=== PATIENT | female | born 1940 | race Caucasian/White ===

== ENCOUNTER 2018-01-18 00:25 | Inpatient (IN) | payer MEDICARE ==
[2018-01-18] MEDS ORDERED: Pantoprazole 40 MG VIAL ONE (01:05)
[2018-01-18 01:44] LABS: ALT (SGPT) 16 U/L (8-55); AST (SGOT) 21 U/L (5-34); Albumin 3.6 g/dL (3.4-4.8); Alkaline Phosphatase 117 U/L (40-150); Anion Gap 16 mmol/L (10-20); BUN (Urea Nitrogen) 17 mg/dL (9.8-20.1); Bilirubin, Total 0.4 mg/dL (0.2-1.2); Calc. Creatinine Clearance 0 mL/min (70-130); Calcium 9.1 mg/dL (7.8-10.44); Carbon Dioxide 26 mmol/L (23-31); Chloride 104 mmol/L (98-107); Estimated GFR-MDRD 57; Globulin 3.4 g/dL (2.4-3.5); Glucose 161 mg/dL (83-110); Lipase 13 U/L (8-78); Potassium 4.5 mmol/L (3.5-5.1); Sodium 141 mmol/L (136-145)
[2018-01-18 01:45] LABS: Band 8 % (5-11); Hemoglobin 12.9 g/dL (12.0-16.0); Lymphocytes 10 % (21-51); MDiff Complete? YES; Mean Corpuscular HGB CONC 32.3 g/dL (32.0-36.0); Mean Corpuscular Hemoglobin 28.4 pg (27.0-31.0); Mean Platelet Volume 10.2 fL (7.4-10.4); Monocytes 2 % (0-10); Neutrophil 79 % (42-75); Platelet Count 175 thou/uL (130-400); RBC Distribution Width 13.5 % (11.5-14.5); Reactive Lymphocytes 1 % (0-10); Red Blood Cell (RBC) Count 4.53 mill/uL (4.20-5.40); White Blood Cell (WBC) Count 11.8 thou/uL (4.8-10.8)
[2018-01-18 01:46] LABS: CKMB 0.7 ng/mL (0-6.6); Troponin I Less than 0.010 ng/mL (< 0.028)
[2018-01-18 03:15] LABS: Bilirubin Negative (Negative); Blood, Urine Negative (Negative); Clarity Cloudy (Clear); Glucose, Urine (Dipstick) Negative (Negative); Leukocyte Small (Negative); Nitrite Positive (Negative); Protein, Urine (Dipstick) Trace mg/dL (Neg-Trace); Urobilinogen 0.2 mg/dL (0.2-1.0)
[2018-01-18 03:16] LABS: RBC/HPF 0-3 HPF (0-3)
[2018-01-18 03:17] LABS: Bacteria/HPF 2+ HPF (None Seen); Hyaline Casts/LPF NONE SEEN LPF (0-3 Hyaline)
[2018-01-18 03:55] LABS: INR-International Normal Ratio 0.9; Prothrombin Time 12.4 SEC (12.0-14.7)
[2018-01-18 03:56] LABS: PTT 29.7 SEC (22.9-36.1)
[2018-01-18] MEDS ORDERED: Piperacillin/Tazobactam 4.5 GM VIAL ONE (04:04)
[2018-01-18] MEDS ORDERED: Sodium Chloride 0.9% 100 ML ONE (04:04)
[2018-01-18] MEDS: Sodium Chloride 0.9% 1,000 ML IV SCH ×2 (04:10→14:06)
[2018-01-18] MEDS ORDERED: Ondansetron HCl/PF 4 MG/2 ML Vial IVP PRN ×3 (05:24→14:51)
[2018-01-18] MEDS ORDERED: Sodium Chloride 0.9% 1,000 ML IV SCH (05:24)
[2018-01-18] MEDS ORDERED: Ondansetron ODT 4 MG TAB SL PRN (05:24)
[2018-01-18] MEDS ORDERED: Acetaminophen 325 MG TAB PO PRN (05:24)
[2018-01-18] MEDS ORDERED: Acetaminophen 1,000 MG in Premix Bag 1 BAG IVPB PRN (05:31)
[2018-01-18] MEDS ORDERED: Ketorolac Tromethamine 30 MG/ML VIAL IVP PRN (05:31)
[2018-01-18] MEDS ORDERED: Morphine 2 MG/ML SYRINGE SLOW IVP PRN (05:33)
[2018-01-18] MEDS ORDERED: Scopolamine 1.5 mg/72 hour Patch TOP SCH (05:45)
[2018-01-18 06:27] VITALS: BMI 33.0
[2018-01-18] MEDS: Piperacillin/Tazobactam 3.375 GM in Sodium Chloride 0.9% 100 ML IVPB SCH ×2 (06:34→12:08)
[2018-01-18] MEDS ORDERED: HumaLOG 300 UNITS/3 ML VIAL SC PRN (07:46)
[2018-01-18] MEDS ORDERED: Dextrose 50% Abboject 50 ML SYRINGE SLOW IVP PRN (07:46)
[2018-01-18] MEDS ORDERED: Dextrose 5% in Water 1,000 ML IV PRN (07:46)
--- NOTE | 2018-01-18 07:59 | HP ---
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 She has recently moved from [place]. She has been having srp-[id number]-half year history of epigastric right upper quadrant pain, back radiation, associated with nausea and vomiting, postprandi al fatty food intake. She has been hospitalized in [place] a year ago for such pain, undergoing cardia c workup consisting of a cardiac stress test that was normal. Echocardiogram that was normal. She h as been given Tylenol #3 for her pain. She takes this occasionally. She presents with a particularl y severe episode and CAT scan obtained reveals changes of cholecystitis. CT scan reveals 2.6 cm gall stone in gallbladder neck. Gallbladder wall thickening, trace pericholecystic fluid and no ductal di latation. White count 11, hemoglobin 12. Basic metabolic profile normal except for glucose of 161. Her liver function tests are normal. ALLERGIES: None. TOBACCO: None. ALCOHOL: None. MEDICATIONS: Dyazide (triamterene/ hydrochlorothiazide) q.a.m., metoprolol 50 mg b.i.d., oxybutynin chloride ER 10 mg a.m., atorvastatin 40 mg a.m. PAST SURGICAL HISTORY: x1. Ankle ORIF. PAST MEDICAL HISTORY: Diabetes mellitus, diet controlled. She does not take medications for this, S VT, she has been placed on metoprolol 2 years ago when she was visiting in [place] and a doctor saw he r, cardiac evaluation was negative then as it was in [place] a year ago. She was started on metoprolol . REVIEW OF SYSTEMS: Ten point noncontributory. No history of colonoscopy. PHYSICAL EXAMINATION: VITAL SIGNS: Temperature 98.2, 63, 124/57. HEENT: Unremarkable. Sclerae nonicteric. SKIN: Nonjaundiced. LYMPH: Axilla, neck, groins without lymphadenopathy. NEURO: Neurologically intact. No focal deficit. HEENT: Unremarkable. Pupils equally round and reactive. LUNGS: Clear to auscultation, no wheezing. CARDIAC: Regular rate and rhythm without murmur or gallop. ABDOMEN: Soft, tenderness in epigastric right upper quadrant with mild guarding, positive Gonzalez's. EXTREMITIES: Unremarkable. No ankle edema, no venous stasis changes. LABORATORIES: As noted above. Glucose 161. ASSESSMENT AND PLAN: 1. Acute cholecystitis and cholelithiasis. Recommend laparoscopic video cholecystectomy. Risk of i nfection, bleeding, visceral and biliary injury explained. It is interesting that her granddaughter at 19 years of age, had a laparoscopic cholecystectomy and require open operation at a later time for initially unrecognized bile duct injury requiring biliary reconstruction. I have discussed with the patient the risk of operation and our efforts to avoid this complication 2. Diabetes mellitus. 3. Obesity, 204 pounds, 33 BMI. Glucose 161 at this episode. 4. In need of a colonoscopy in the future. 5. Supraventricular tachycardia, on metoprolol. We will hold due to heart rate of 52, encourage her to see her primary care physician to address this. 6. Diabetes mellitus. Encouraged her see her primary care physician to address her elevated glucose 161, diabetes. Of course, during this time of stress at 161 glucose is not unreasonable.
--- NOTE | 2018-01-18 08:36 | CT ---
PRELIMINARY REPORT/[facility]/EMERGENCY AFTER HOURS PROCEDURE: EXAM: CT Abdomen and Pelvis With Intravenous Contrast EXAM DATE/TIME: 01/18/2018 2:11 AM CLINICAL HISTORY: Pain; Abdominal pain; Patient HX: Pt reports generalized abd pain "for a few days. ". TECHNIQUE: Axial computed tomography images of the abdomen and pelvis with intravenous contrast. Kylee nal reformatted images were created and reviewed. CONTRAST: 85 mL of [id number] administered intravenously. COMPARISON: No relevant prior studies available. FINDINGS: Lower thorax: The heart is enlarged. Coronary artery calcification. ABDOMEN: Liver: The liver is diffusely low in density compatible with steatosis. Gallbladder and bile ducts: 2.6 cm gallstone in the region of the gallbladder neck. Mild gallbladder wall thickening and trace pericholecystic fluid. No ductal dilation. Pancreas: There is diffuse atrophy of the pancreatic parenchyma. No ductal dilation. Spleen: Unremarkable. No splenomegaly. Adrenals: Unremarkable. No mass. Kidneys and ureters: Unremarkable. No solid mass. No hydronephrosis. Stomach and bowel: Moderate stool. No bowel obstruction. No mucosal thickening. Appendix: The appendix is not definitively visualized. No findings to suggest acute appendicitis. PELVIS: Bladder: Unremarkable. No mass. Reproductive: Unremarkable as visualized. ABDOMEN and PELVIS: Intraperitoneal space: Unremarkable. No free air. No significant fluid collection. Bones/joints: Multilevel spondylosis. No acute fracture. No dislocation. Soft tissues: Small fat containing umbilical hernia. Vasculature: Aortoiliac atherosclerosis. No abdominal aortic aneurysm. Lymph nodes: Unremarkable. No enlarged lymph nodes. IMPRESSION: 1. Findings suspicious for acute cholecystitis. 2. Other findings as above. ---We are pleased to participate in the care of your patient.--- Thank you for allowing us to participate in the care of your patient. Dictated and Authenticated by: Felipe Schrader MD 01/18/2018 3:23 AM Central Time ([place] & [place]) FINAL REPORT CT ABDOMEN AND PELVIS WITH IV CONTRAST: I agree with the preliminary report given by Dr. Felipe Schrader of [facility]. POS: [facility]
[2018-01-18 10:51] LABS: Hemoglobin A1c 6.3 % (4.0-6.0)
[2018-01-18] MEDS ORDERED: Bupivacaine HCl 0.5%/Epinephrine 1:200,000/PF 30 ml Vial ONE (13:22)
[2018-01-18] MEDS ORDERED: Promethazine HCl 25 MG/ML VIAL ONE (13:25)
[2018-01-18] MEDS ORDERED: Fentanyl 250 MCG/5 ML VIAL ONE ×2 (13:25→14:54)
[2018-01-18] MEDS ORDERED: traMADol HCl 50 MG TAB PO PRN ×2 (14:36)
[2018-01-18] MEDS ORDERED: Acetaminophen 500 MG TAB PO PRN (14:36)
[2018-01-18] MEDS ORDERED: Morphine Sulfate 2 MG/ML SYRINGE SLOW IVP PRN (14:51)
[2018-01-18] MEDS ORDERED: Promethazine HCl 25 MG/ML VIAL SLOW IVP PRN (14:51)
[2018-01-18] MEDS ORDERED: Glycopyrrolate 0.2 MG/ML 5 ML SYRINGE ONE (14:56)
[2018-01-18] MEDS ORDERED: Dexamethasone 20 MG/5 ML VIAL ONE (14:56)
[2018-01-18] MEDS ORDERED: Lidocaine 1% PF 5 ML VIAL ONE (14:56)
[2018-01-18] MEDS ORDERED: Ketorolac Tromethamine 30 MG/ML VIAL ONE (14:56)
[2018-01-18] MEDS ORDERED: Ondansetron HCl/PF 4 MG/2 ML Vial ONE (14:56)
[2018-01-18] MEDS ORDERED: Propofol 200 MG/20 ML VIAL ONE (14:56)
[2018-01-18] MEDS ORDERED: PHENYLEPHRINE-NS 100 MCG/ML 10 ML SYRINGE ONE (14:56)
[2018-01-18] MEDS ORDERED: ePHEDrine/0.9% NaCl/PF SYRINGE 50 mg/10 ml ONE (14:56)
--- NOTE | 2018-01-18 14:56 | OP ---
DATE OF PROCEDURE: 01/18/2018 PREOPERATIVE DIAGNOSES: Cholecystitis, cholelithiasis. POSTOPERATIVE DIAGNOSES: Cholecystitis, cholelithiasis. PROCEDURE: Laparoscopic video cholecystectomy. SURGEON: Otilio Mireles M.D. ANESTHESIA: General. Local 0.5% Marcaine with epinephrine, 30 mL. ESTIMATED BLOOD LOSS: Less than 10 mL. PROCEDURE: The patient taken to the operating room under general anesthesia, abdomen was prepared wi th ChloraPrep, draped in routine fashion. Local anesthetic infiltrated into skin and subcutaneous ti ssue about each port site. The infraumbilical incision made and pneumoperitoneum to 15 mmHg were obt ained with the Veress needle, replacing it with a 5 port and video laparoscope inserted. Right subxi phoid incision made and 11 port placed. Right subcostal incision made, mid clavicular anterior axill elise lines and 5 ports placed. Liver appeared to be fatty. Fundus of gallbladder grasped at the left cephalad. Infundibulum grasped and reflected laterally. Cystic artery and duct dissected free. Cr itical view obtained. Cystic artery and duct doubly clipped proximally, divided, and gallbladder dis sected free from liver bed obtaining good hemostasis prior to division of final peritoneal attachment s. Gallbladder and contents removed, submitted to the Pathology. Good hemostasis ensured with caute ry. Irrigant and pneumoperitoneum evacuated. All instruments removed and all skin incisions approxi mated with interrupted subdermal 4-0 Monocryl and DermaGlue applied.
[2018-01-18 16:16] VITALS: BP 131/46; TEMP 97.4
--- NOTE | 2018-01-18 19:59 | DIS ---
DATE OF ADMISSION: 01/17/2018 DATE OF DISCHARGE: 01/18/2018 DISCHARGE DIAGNOSES: 1. Cholecystitis and cholelithiasis. 2. Diet controlled diabetes. Admission glucose 164. Hemoglobin A1c pending. DISCHARGE MEDICATIONS: Resume home medications, triamterene, hydrochlorothiazide daily, metoprolol 5 0 mg b.i.d. (held the morning of surgery due to heart rate 50-52), Oxybutynin chloride ER 10 mg a day and atorvastatin 40 mg a.m. PROCEDURES PERFORMED: CT scan of abdomen and pelvis in the ER and laparoscopic cholecystectomy. DISCHARGE DISPOSITION: Discharge to home with additional medications, Ultram 50, #21 refill. DISCHARGE INSTRUCTIONS: Diet and activity as tolerated. Resume diabetic diet. Follow up in my offi ce in 2-3 weeks. Follow up with primary care physician for metoprolol dosage instructions and diabet es followup. HOSPITAL COURSE: A 77-year-old female with 2-1/2 years of abdominal pain, previously presented with epigastric pain last year in [place] and underwent cardiac evaluation and stress test and echocardiogra m that was normal. She has been placed on metoprolol 3 years ago in [place] because of SVT. She pres ented on this occasion because of worsening epigastric right upper quadrant pain and admitted late in the evening, kept on antibiotics, underwent laparoscopic video cholecystectomy and discharged home w ith the above regimen. Diet and activity as tolerated. No activity restrictions.
[2018-01-19] MEDS ORDERED: Polyethylene Glycol 3350 17 GM Packet PO SCH (09:00)
--- NOTE | 2018-01-21 18:30 | EKG ---
Test Reason : Blood Pressure : / mmHG Vent. Rate : 059 BPM Atrial Rate : 059 BPM P-R Int : 178 ms QRS Dur : 082 ms QT Int : 434 ms P-R-T Axes : 047 -19 020 degrees QTc Int : 429 ms Sinus bradycardia Moderate voltage criteria for LVH, may be normal variant Left axis deviation Borderline ECG Confirmed by MARIANNE RODRIGUEZ ([id number]), digital editor YUKI RUTLEDGE ([id number]) on 01/21/2018 6:30:04 PM Referred By: Confirmed By:MARIANNE RODRIGUEZ
[2018-01-23] MEDS ORDERED: Ibuprofen 600 MG TAB PO PRN (12:00)
== END 2018-01-18 19:26 | disposition home or self-care (01) | DRG 418 ==
LOC: SCSER 00:25 → SURG A 03:50
PROVIDERS: ADMIT Specialist; ATTEND Specialist
PROC: 0FT44ZZ Resection of Gallbladder, Percutaneous Endoscopic Approach (ICD-10-PCS; principal; 2018-01-18)
DX: K80.00 Calculus of gallbladder with acute cholecystitis without obstruction (principal); I47.1 Supraventricular tachycardia; E11.9 Type 2 diabetes mellitus without complications; E66.9 Obesity, unspecified; Z68.33 Body mass index [BMI] 33.0-33.9, adult; K21.9 Gastro-esophageal reflux disease without esophagitis; I10 Essential (primary) hypertension
CPT/HCPCS: 36416; 74177; 80053; 81003; 81015; 82553; 83036; 83605; 83690; 84484; 85025; 85610; 85730; 87077; 87086; 87186; 88304; 93005; 96365; 96375; C9113; J0670; J1100; J1885; J2001; J2405; J2543; J2550; J2704; J3010; J7050

== ENCOUNTER 2022-11-03 18:27 | Inpatient (IN) | payer MEDICARE ==
[~2022-11-03 18:27] MED LIST: Iopamidol-370 76% 500 ML 1 ML ONE
[2022-11-03 18:48] LABS: #Eosinphils 0.1 thou/uL (0.0-0.7); #Lymphocytes 1.5 thou/uL (1.20-3.40); #Monocytes 0.6 thou/uL (0.11-0.59); #Neutrophils 5.3 thou/uL (1.40-6.50); %Basophils 0.4 % (0.0-1.0); %Eosinophils 1.9 % (0.0-10.0); %Lymphocytes 19.4 % (21.0-51.0); %Monocytes 8.5 % (0.0-10.0); %Neutrophils 69.8 % (42.0-75.0); Hemoglobin 14.3 g/dL (12.0-16.0); Mean Corpuscular HGB CONC 32.3 g/dL (32.0-36.0); Mean Corpuscular Hemoglobin 29.6 pg (27.0-31.0); Mean Corpuscular Volume 91.6 fl (78.0-98.0); Mean Platelet Volume 8.7 fL (7.4-10.4); Platelet Count 149 10x3/uL (130-400); RBC Distribution Width 13.5 % (11.5-14.5); Red Blood Cell (RBC) Count 4.84 mill/uL (4.20-5.40); White Blood Cell (WBC) Count 7.6 10x3/uL (4.8-10.8)
[2022-11-03 18:59] LABS: Prothrombin Time 13.2 sec (12.0-14.7)
[2022-11-03 19:10] LABS: ALT (SGPT) 15 U/L (8-55); AST (SGOT) 18 U/L (5-34); Albumin 3.8 g/dL (3.4-4.8); Alkaline Phosphatase 123 U/L (40-110); Anion Gap 15 mmol/L (10-20); BUN (Urea Nitrogen) 14 mg/dL (9.8-20.1); Bilirubin, Total 0.7 mg/dL (0.2-1.2); Calc. Creatinine Clearance 0 mL/min (70-130); Calcium 9.3 mg/dL (7.8-10.44); Carbon Dioxide 22 mmol/L (23-31); Chloride 106 mmol/L (98-107); Estimated GFR 67; Globulin 3.3 g/dL (2.4-3.5); Glucose 176 mg/dL (83-110); Potassium 4.1 mmol/L (3.5-5.1); Protein, Total 7.1 g/dL (5.8-8.1); Sodium 139 mmol/L (136-145)
[2022-11-03] MEDS ORDERED: Ondansetron PF 4 MG/2 ML Vial ONE (20:07)
[2022-11-03] MEDS ORDERED: Acetaminophen 325 MG TAB PO PRN (20:09)
[2022-11-03] MEDS ORDERED: Ondansetron ODT 4 MG TAB PO PRN (20:09)
[2022-11-03] MEDS ORDERED: Ondansetron PF 4 MG/2 ML Vial IVP PRN (20:09)
[2022-11-03] MEDS ORDERED: Acetaminophen 650 MG Suppository PR PRN (20:09)
[2022-11-03] MEDS ORDERED: diphenhydrAMINE 50 MG/ML VIAL ONE (20:20)
[2022-11-03] MEDS ORDERED: Labetalol HCl 100 MG/20 ML VIAL ONE (20:51)
[2022-11-04] MEDS ORDERED: hydrALAZINE 20 MG/ML VIAL SLOW IVP PRN (01:37)
[2022-11-04 03:40] VITALS: BMI 29.4
[2022-11-04] MEDS: Labetalol HCl 100 MG/20 ML VIAL SLOW IVP PRN ×2 (05:11→21:07)
[2022-11-04 06:24] LABS: #Lymphocytes 0.9 thou/uL (1.20-3.40); #Monocytes 0.4 thou/uL (0.11-0.59); #Neutrophils 8.4 thou/uL (1.40-6.50); %Eosinophils 0.1 % (0.0-10.0); %Lymphocytes 9.2 % (21.0-51.0); %Monocytes 4.1 % (0.0-10.0); %Neutrophils 86.6 % (42.0-75.0); Hemoglobin 12.8 g/dL (12.0-16.0); Mean Corpuscular HGB CONC 32.4 g/dL (32.0-36.0); Mean Corpuscular Hemoglobin 29.8 pg (27.0-31.0); Mean Corpuscular Volume 92.1 fl (78.0-98.0); Mean Platelet Volume 8.8 fL (7.4-10.4); Platelet Count 153 10x3/uL (130-400); RBC Distribution Width 13.3 % (11.5-14.5); Red Blood Cell (RBC) Count 4.29 mill/uL (4.20-5.40); White Blood Cell (WBC) Count 9.7 10x3/uL (4.8-10.8)
[2022-11-04 06:43] LABS: Anion Gap 14 mmol/L (10-20); BUN (Urea Nitrogen) 16 mg/dL (9.8-20.1); Calc. Creatinine Clearance 72 mL/min (70-130); Carbon Dioxide 23 mmol/L (23-31); Chloride 104 mmol/L (98-107); Estimated GFR 76; Glucose 190 mg/dL (83-110); Potassium 3.9 mmol/L (3.5-5.1); Sodium 137 mmol/L (136-145)
[2022-11-04] MEDS: D5 1/2 NS w/20 mEq KCL 1,000 ML IV SCH (16:24)
[2022-11-05] MEDS: Labetalol HCl 100 MG/20 ML VIAL SLOW IVP PRN ×3 (01:55→18:19)
[2022-11-05] MEDS: D5 1/2 NS w/20 mEq KCL 1,000 ML IV SCH (10:31)
[2022-11-05] MEDS: Morphine 4 MG/ML VIAL SLOW IVP PRN (18:12)
[2022-11-05] MEDS ORDERED: D5 1/2 NS w/20 mEq KCL 1,000 ML IV SCH (19:44)
[2022-11-05] MEDS ORDERED: Melatonin 3 MG TAB PO PRN (20:52)
[2022-11-05] MEDS ORDERED: Scopolamine 1.5 mg/72 hour Patch TD SCH (21:00)
[2022-11-05] MEDS ORDERED: Lorazepam 2 MG/ML VIAL SLOW IVP PRN (21:06)
[2022-11-05] MEDS ORDERED: Lorazepam 2 MG/ML VIAL SLOW IVP SCH (21:30)
[2022-11-06 03:08] VITALS: TEMP 99.2
[2022-11-06] MEDS: Morphine 4 MG/ML VIAL SLOW IVP PRN ×2 (03:20→08:45)
[2022-11-06 03:29] VITALS: BP 133/58
[2022-11-06] MEDS ORDERED: Morphine 4 MG/ML VIAL SLOW IVP PRN ×2 (09:35→09:36)
[2022-11-06] MEDS ORDERED: Lorazepam 2 MG/ML VIAL SLOW IVP PRN (09:36)
== END 2022-11-06 11:17 | disposition hospice, home (50) | DRG 82 ==
LOC: ERS 18:27 → NEURO 20:11
PROVIDERS: ADMIT Internal Medicine; ATTEND Internal Medicine
DX: S06.35AA Traumatic hemorrhage of left cerebrum with loss of consciousness status unknown, initial encounter (principal); G93.41 Metabolic encephalopathy; S06.A1XA Traumatic brain compression with herniation, initial encounter; S06.1XAA Traumatic cerebral edema with loss of consciousness status unknown, initial encounter; Z66 Do not resuscitate; Z20.822 Contact with and (suspected) exposure to COVID-19; F03.90 Unspecified dementia, unspecified severity, without behavioral disturbance, psychotic disturbance, mood disturbance, and anxiety; N18.2 Chronic kidney disease, stage 2 (mild); K21.9 Gastro-esophageal reflux disease without esophagitis; I05.0 Rheumatic mitral stenosis; W18.39XA Other fall on same level, initial encounter; R40.2342 Coma scale, best motor response, flexion withdrawal, at arrival to emergency department; R40.2142 Coma scale, eyes open, spontaneous, at arrival to emergency department; R40.2212 Coma scale, best verbal response, none, at arrival to emergency department; Z79.899 Other long term (current) drug therapy; Z87.442 Personal history of urinary calculi; Z87.891 Personal history of nicotine dependence
CPT/HCPCS: 36415; 36416; 70450; 70496; 72125; 80048; 80053; 85025; 85610; 85730; J1200; J2060; J2270; J2405; J3480; Q9967; U0003; U0005